=== PATIENT | male | born 1955 | race Hispanic/Latino ===

== ENCOUNTER 2024-03-02 18:26 | Emergency (ER) | payer BC, MEDICARE ==
[~2024-03-02] VITALS: Ht 172.7 cm; Wt 114.3 kg
[~2024-03-02 18:26] MED LIST: ASPI-1026 PO; CYCL-309 PO; DOCU-116 PO; GABA100C PO; HYDR-4060 PO
[2024-03-02] MEDS: HYDROCODONE/ACETAMINOPHEN 5/325 MG TAB PO ONE (19:16)
[2024-03-02] MEDS: CYCLOBENZAPRINE HCL 10 MG TABLET PO ONE (19:17)
[2024-03-02] MEDS: SOLU-MEDROL 125MG VIAL IM ONE (19:17)
[2024-03-02] MEDS ORDERED: CYCL10TA16 PO (21:16)
[2024-03-02] MEDS ORDERED: ACET-2079 PO (21:16)
[2024-03-02 21:22] VITALS: BP 151/90; PULSE 70; RESP 17; O2SAT 96
== END 2024-03-02 21:29 | disposition home or self-care (01) ==
LOC: EDH 18:26
DX: M25.511 Pain in right shoulder (principal); M54.2 Cervicalgia; Z79.82 Long term (current) use of aspirin; Z79.899 Other long term (current) drug therapy; Z98.890 Other specified postprocedural states
CPT/HCPCS: 99284; 72040; 73030; 96372; J2919

== ENCOUNTER 2024-03-08 18:39 | Emergency (ER) | payer BC ==
[~2024-03-08] VITALS: Ht 172.7 cm; Wt 115.7 kg
[~2024-03-08 18:39] MED LIST changes: +ACET-2079 PO; +CYCL10TA16 PO
[2024-03-08 18:40] VITALS: BP 149/105; PULSE 84; RESP 18
== END 2024-03-08 20:11 | disposition left against medical advice (07) ==
LOC: EDH 18:39
DX: M25.511 Pain in right shoulder (principal); Z79.82 Long term (current) use of aspirin; Z79.899 Other long term (current) drug therapy; Z96.651 Presence of right artificial knee joint
CPT/HCPCS: 99281